=== PATIENT | female | born 1970 | race Hispanic/Latino ===

== ENCOUNTER 2017-04-19 11:28 | Outpatient (CLI) | payer OTHER ==
--- NOTE | 2017-04-20 09:15 | XRay Report ---
Scoliosis survey: Standing AP thoracolumbar spine demonstrates a mild dextroscoliosis of the thoracolumbar spine. There is a maximum curvature of 4.7degree using the reference body of T11. No structural abnormalities identified.
== END 2017-04-19 11:29 | disposition home or self-care (01) ==
LOC: XRAY 11:28
PROVIDERS: ATTEND Internal Medicine
DX: M41.85 Other forms of scoliosis, thoracolumbar region (principal); M43.8X4 Other specified deforming dorsopathies, thoracic region
CPT/HCPCS: 72081